=== PATIENT | male | born 1985 | race Two or more races ===

== ENCOUNTER 2018-08-22 23:53 | Emergency (ER) | payer MEDICAID ==
[~2018-08-22] VITALS: Ht 172.7 cm; Wt 80.0 kg
[2018-08-23 00:25] LABS: BASOPHILS # (AUTO) 0.05 x10^3/uL (0-0.1); BASOPHILS % (AUTO) 1 % (0-1); EOSINOPHILS # (AUTO) 0.17 x10^3/uL (0-0.4); EOSINOPHILS % (AUTO) 2 % (1-7); LYMPHOCYTES % (AUTO) 34 % (22-44); MD NO; MEAN CORPUSCULAR HEMOGLOBIN 28.8 pg (27.5-34.5); MEAN CORPUSCULAR HGB CONC 33.6 g/dL (33.2-36.2); MEAN CORPUSCULAR VOLUME 85.8 fL (81-97); MEAN PLATELET VOLUME 7.8 fL (7.4-10.4); MONOCYTES # (AUTO) 0.65 x10^3/uL (0.2-0.8); MONOCYTES % (AUTO) 7 % (2-9); NEUTROPHILS # (AUTO) 5.17 x10^3/uL (1.8-6.8); NEUTROPHILS % (AUTO) 57 % (42-75); PLATELET COUNT 347 x10^3/uL (130-400); RED BLOOD COUNT 5.31 x10^6/uL (4.38-5.82); RED CELL DISTRIBUTION WIDTH 14.3 % (9.4-14.8)
[2018-08-23 00:37] LABS: ALBUMIN 3.5 g/dL (3.4-5.0); ANION GAP 11 mmol/L (5-15); CALCIUM 8.1 mg/dL (8.5-10.1); CHLORIDE 110 mmol/L (98-107); CREATININE 0.92 mg/dL (0.7-1.3)
--- NOTE | 2018-08-23 00:37 | NUR ---
PT HERE FOR ETOH AND LAC TO LEFT EAR. PT IS NOT ANSWERING MANY QUESTIONS AND IS ARGUMENTATIVE. VSS. LAB EDDIE BLOOD. PT RESTING AND GIVEN A BLANKET. PT DENIES MED HX OR ALLERGIES. CALL LIGHT IN REACH
--- NOTE | 2018-08-23 01:22 | NUR ---
IRRIGATION ATTEMPTED BUT PATIENT WAS UNCOOPERATIVE. DOCTOR WAS NOTIFIED.
--- NOTE | 2018-08-23 01:25 | NUR ---
TASK RN: PT NOT COOPERATIVE WITH IRRIGATION. ERP AWARE. PT L SIDE LAYING, PWD. RESPIRATIONS EVEN AND UNLABORED, SPO2 >90% ON RA. PT NON-TREMULOUS; NO EVIDENCE OF EMESIS OR POSSIBLE ASPIRATION NOTED. BP/SPO2 MONITORING IN PLACE. AWAITING CT SCAN RESULTS. POC IS OBS UNTIL SAFE FOR DC.
--- NOTE | 2018-08-23 03:00 | NUR ---
PT SLEEPING. PT IN NAD. EVEN RISE AND FALL OF CHEST OBSERVED. VSS. CALL LIGHT IN REACH
[2018-08-23 03:09] VITALS: BP 108/60
--- NOTE | 2018-08-23 04:12 | NUR ---
Patient given discharge instructions and they have confirmed that they understand the instructions. Patient ambulatory with steady gait.
[2018-08-25] MEDS ORDERED: SUMA100T3 PO (05:18)
== END 2018-08-23 04:14 | disposition home or self-care (01) ==
LOC: ED 08-23 04:00
DX: S01.312A Laceration without foreign body of left ear, initial encounter (principal); F10.120 Alcohol abuse with intoxication, uncomplicated; W19.XXXA Unspecified fall, initial encounter; Y93.89 Activity, other specified; Y92.89 Other specified places as the place of occurrence of the external cause; Y99.8 Other external cause status
CPT/HCPCS: 36415; 70450; 72125; 80048; 80307; 82040; 85025; 99284

== ENCOUNTER 2020-01-25 03:50 | Emergency (ER) | payer MEDICAID ==
[~2020-01-25 03:50] MED LIST: SUMA100T3 PO
[2020-01-25 03:58] VITALS: BP 148/100
[2020-01-25 05:35] LABS: BASOPHILS # (AUTO) 0.04 x10^3/uL (0-0.1); BASOPHILS % (AUTO) 1 % (0-1); EOSINOPHILS # (AUTO) 0.04 x10^3/uL (0-0.4); EOSINOPHILS % (AUTO) 1 % (1-7); LYMPHOCYTES # (AUTO) 1.67 x10^3/uL (1-3.4); LYMPHOCYTES % (AUTO) 24 % (22-44); MD NO; MEAN CORPUSCULAR HEMOGLOBIN 29.2 pg (27.5-34.5); MEAN CORPUSCULAR HGB CONC 33.5 g/dL (33.2-36.2); MEAN CORPUSCULAR VOLUME 87.3 fL (81-97); MEAN PLATELET VOLUME 7.9 fL (7.4-10.4); MONOCYTES % (AUTO) 7 % (2-9); NEUTROPHILS # (AUTO) 4.72 x10^3/uL (1.8-6.8); NEUTROPHILS % (AUTO) 68 % (42-75); PLATELET COUNT 277 x10^3/uL (130-400)
[2020-01-25 05:42] LABS: ALBUMIN 3.9 g/dL (3.4-5.0); ANION GAP 10 mmol/L (5-15); CHLORIDE 105 mmol/L (98-107); CREATININE 0.89 mg/dL (0.7-1.3)
[2020-01-25 05:44] LABS: SALICYLATE LEVEL < 1.7 mg/dL (2.8-20.0)
[2020-01-25 05:46] LABS: TROPONIN I < 0.015 ng/mL (0.000-0.045)
[2020-01-25 06:06] LABS: AMPHETAMINE SCREEN, URINE Negative (Negative); BARBITURATE SCREEN, URINE Negative (Negative); BENZODIAZEPINE SCREEN, URINE Negative (Negative); CANNABINOID SCREEN, URINE Negative (Negative); COCAINE SCREEN, URINE Negative (Negative); METHADONE SCREEN, URINE Negative (Negative); OPIATE SCREEN, URINE Negative (Negative)
== END 2020-01-25 06:36 | disposition home or self-care (01) ==
LOC: ED 04:36
DX: F20.9 Schizophrenia, unspecified (principal); R07.89 Other chest pain; R06.02 Shortness of breath
CPT/HCPCS: 36415; 71045; 80048; 80307; 82040; 84484; 85025; 93005; 99285